=== PATIENT | male | born 1950 | race Caucasian/White ===

== ENCOUNTER 2021-04-28 09:56 | Outpatient (CLI) | payer MEDICARE ==
[2021-04-28 11:18] LABS: Hemoglobin 17.2 g/dL (13.5-17.5); Mean Corpuscular Hemoglobin 30.4 pg (27.0-33.0); Mean Corpuscular Volume 92.2 fl (81.2-95.1); Mean Platelet Volume 9.5 fl (7.4-10.4); Platelet Count 168 10x3/uL (150-450); RBC Distribution Width 13.9 % (11.5-14.5); Red Blood Cell (RBC) Count 5.65 10x6/uL (4.32-5.72); White Blood Cell (WBC) Count 4.3 10x3/uL (3.5-10.5)
[2021-04-28 12:23] LABS: Anion Gap 13 mmol/L (10-20); BUN (Urea Nitrogen) 21 mg/dL (8.4-25.7); Calc. Creatinine Clearance 0 mL/min (70-130); Calcium 9.3 mg/dL (7.8-10.44); Carbon Dioxide 25 mmol/L (23-31); Chloride 105 mmol/L (98-107); Glucose 100 mg/dL (80-115); Potassium 4.1 mmol/L (3.5-5.1); Sodium 139 mmol/L (136-145)
[2021-04-28 23:08] LABS: SARS-CoV-2 PCR by NAA Not Detected (NotDetected)
== END 2021-04-28 09:57 | disposition home or self-care (01) ==
LOC: CSHLAB 09:56
PROVIDERS: ATTEND Otolaryngology Otolaryngic Allergy
DX: Z01.818 Encounter for other preprocedural examination (principal); Z20.822 Contact with and (suspected) exposure to COVID-19; J34.2 Deviated nasal septum; J34.89 Other specified disorders of nose and nasal sinuses; J34.3 Hypertrophy of nasal turbinates; G47.33 Obstructive sleep apnea (adult) (pediatric)
CPT/HCPCS: 80048; 85027; 93005; 93010; U0003; U0005

== ENCOUNTER 2021-05-03 07:17 | Observation (INO) | payer MEDICARE ==
[2021-04-28 09:48] VITALS: BMI 30.2
[2021-05-03] MEDS ORDERED: Lidocaine 1% MPF 2 ML VIAL ONE (10:03)
[2021-05-03] MEDS ORDERED: Oxymetazoline HCl 0.05% ( 15 ML ) ONE (10:03)
[2021-05-03] MEDS ORDERED: Acetaminophen 325 MG TAB PO PRN (10:46)
[2021-05-03] MEDS ORDERED: Ondansetron ODT 4 MG TAB PO PRN (10:46)
[2021-05-03] MEDS ORDERED: Ondansetron PF 4 MG/2 ML Vial IVP PRN (10:46)
[2021-05-03] MEDS ORDERED: Acetaminophen/Codeine 30-300mg Tablet PO PRN (10:49)
[2021-05-03] MEDS ORDERED: Oxymetazoline HCl 0.05% ( 15 ML ) NASAL PRN (10:51)
[2021-05-03] MEDS ORDERED: Sodium Chloride 0.65% Nasal 44 ML BOT EA NARE PRN ×2 (10:52→11:45)
[2021-05-03] MEDS ORDERED: Ondansetron PF 4 MG/2 ML Vial ONE (10:53)
[2021-05-03] MEDS ORDERED: Fentanyl 250 MCG/5 ML VIAL ONE (10:53)
[2021-05-03] MEDS ORDERED: Lidocaine 2% PF 5 ML VIAL ONE (10:53)
[2021-05-03] MEDS ORDERED: PROPOFOL 20 ML ONE ×2 (10:53→10:57)
[2021-05-03] MEDS ORDERED: Midazolam HCl 2 mg/2 ml Vial ONE (10:53)
[2021-05-03] MEDS ORDERED: Rocuronium Bromide 10 MG/ML (10ML VIAL) ONE (10:53)
[2021-05-03] MEDS ORDERED: Dexamethasone 4 mg/ml Vial ONE (10:53)
[2021-05-03] MEDS ORDERED: SUGAMMADEX SODIUM 200 MG/2 ML VIAL ONE (10:56)
[2021-05-03] MEDS ORDERED: CEFAZOLIN 1 GM VIAL ONE (11:01)
[2021-05-03] MEDS ORDERED: Lidocaine 1% w/Epinephrine 1:100K 20 ML VIAL ONE (11:27)
[2021-05-03] MEDS ORDERED: Mupirocin 2% Ointment 22 GM Tube ONE (11:56)
[2021-05-03] MEDS ORDERED: Fentanyl 100 MCG/2 ML VIAL ONE (12:29)
[2021-05-03] MEDS ORDERED: AMOXicillin 500 MG CAP PO SCH (14:00)
[2021-05-03] MEDS: Acetaminophen/Codeine 30-300mg Tablet PO PRN ×2 (14:15→21:40)
[2021-05-03] MEDS ORDERED: AMOXicillin 250 MG CAP PO SCH (14:15)
[2021-05-03] MEDS ORDERED: cloNIDine 0.1 MG TAB PO SCH (17:00)
[2021-05-03] MEDS ORDERED: Losartan Potassium 50 MG TAB PO SCH ×2 (17:00→21:00)
[2021-05-03] MEDS ORDERED: Amlodipine 5 MG TAB PO SCH ×2 (17:00→21:00)
[2021-05-03] MEDS ORDERED: Ibuprofen 400 MG TAB PO PRN (17:59)
[2021-05-03] MEDS ORDERED: Rosuvastatin 10 MG TAB PO SCH (21:00)
[2021-05-03] MEDS ORDERED: Gabapentin 300 MG CAP PO SCH (21:00)
[2021-05-03] MEDS ORDERED: Primidone 50 MG TAB PO SCH (21:00)
[2021-05-03] MEDS: AMOXicillin 250 MG CAP PO SCH (21:44)
[2021-05-03] MEDS: cloNIDine 0.1 MG TAB PO SCH (21:44)
[2021-05-04] MEDS: Acetaminophen/Codeine 30-300mg Tablet PO PRN ×3 (02:31→11:07)
[2021-05-04] MEDS ORDERED: Levothyroxine Sodium 50 MCG TAB PO SCH (06:00)
[2021-05-04] MEDS: AMOXicillin 250 MG CAP PO SCH (06:41)
[2021-05-04 08:10] VITALS: BP 162/90; TEMP 98.3
[2021-05-04] MEDS: cloNIDine 0.1 MG TAB PO SCH (08:53)
[2021-05-06] MEDS ORDERED: Anastrozole 1 MG TAB PO SCH (09:00)
== END 2021-05-04 12:06 | disposition home or self-care (01) ==
LOC: CSHSDC 07:17 → CSHTELE 13:58
PROVIDERS: ADMIT Otolaryngology Otolaryngic Allergy; ATTEND Otolaryngology Otolaryngic Allergy
DX: J34.2 Deviated nasal septum (principal); J34.89 Other specified disorders of nose and nasal sinuses; J34.3 Hypertrophy of nasal turbinates; G47.33 Obstructive sleep apnea (adult) (pediatric); Z79.899 Other long term (current) drug therapy; I25.10 Atherosclerotic heart disease of native coronary artery without angina pectoris
CPT/HCPCS: 30140; 30520; 94640; 94760; G0378 ×2; J0690; J1100; J2001; J2250; J2405; J2704; J3010

== ENCOUNTER 2021-07-14 12:07 | Outpatient (CLI) | payer MEDICARE ==
[2021-07-14 13:35] LABS: Hemoglobin 16.5 g/dL (13.5-17.5); Mean Corpuscular HGB CONC 32.4 g/dL (32.0-36.0); Mean Corpuscular Hemoglobin 29.7 pg (27.0-33.0); Mean Corpuscular Volume 91.7 fl (81.2-95.1); Platelet Count 145 10x3/uL (150-450); RBC Distribution Width 14.4 % (11.5-14.5); Red Blood Cell (RBC) Count 5.55 10x6/uL (4.32-5.72); White Blood Cell (WBC) Count 4.3 10x3/uL (3.5-10.5)
[2021-07-14 14:01] LABS: Anion Gap 11 mmol/L (10-20); BUN (Urea Nitrogen) 25 mg/dL (8.4-25.7); Calc. Creatinine Clearance 0 mL/min (70-130); Calcium 9.8 mg/dL (7.8-10.44); Carbon Dioxide 27 mmol/L (23-31); Chloride 104 mmol/L (98-107); Glucose 111 mg/dL (80-115); Potassium 4.4 mmol/L (3.5-5.1); Sodium 138 mmol/L (136-145)
[2021-07-15 11:47] LABS: SARS-CoV-2 PCR by NAA Not Detected (NotDetected)
== END 2021-07-14 12:08 | disposition home or self-care (01) ==
LOC: CSHLAB 12:07
PROVIDERS: ATTEND Otolaryngology Otolaryngic Allergy
DX: Z01.812 Encounter for preprocedural laboratory examination (principal); Z20.822 Contact with and (suspected) exposure to COVID-19
CPT/HCPCS: 80048; 85027; U0003; U0005

== ENCOUNTER 2021-07-19 05:51 | Day surgery (SDC) | payer MEDICARE ==
[2021-07-14 10:13] VITALS: BMI 30.2
[2021-07-19] MEDS ORDERED: Lidocaine 1% MPF 2 ML VIAL ONE (06:20)
[2021-07-19] MEDS ORDERED: Propofol 1,000 MG/100 ML VIAL IV ONE (06:31)
[2021-07-19] MEDS ORDERED: Phenylephrine 40 MG/NS 250 ML 250 ML ONE (06:31)
[2021-07-19] MEDS ORDERED: Fentanyl 250 MCG/5 ML VIAL ONE (06:46)
[2021-07-19] MEDS ORDERED: PROPOFOL 20 ML ONE (06:46)
[2021-07-19] MEDS ORDERED: Rocuronium Bromide 10 MG/ML (10ML VIAL) ONE (06:46)
[2021-07-19] MEDS ORDERED: Midazolam HCl 2 mg/2 ml Vial ONE (06:46)
[2021-07-19] MEDS ORDERED: Lidocaine 1% PF 5 ML VIAL ONE (06:46)
[2021-07-19] MEDS ORDERED: Dexamethasone 20 MG/5 ML VIAL ONE (06:46)
[2021-07-19] MEDS ORDERED: Ondansetron PF 4 MG/2 ML Vial ONE (06:46)
[2021-07-19] MEDS ORDERED: ePHEDrine Sulfate 50 MG/10 ML VIAL ONE (06:47)
[2021-07-19] MEDS ORDERED: ceFAZolin 2 GM/Dextrose 50 ML IVPB ONE (07:17)
[2021-07-19] MEDS ORDERED: Lidocaine 1% w/Epinephrine 1:100K 20 ML VIAL ONE (07:35)
[2021-07-19] MEDS ORDERED: Glycopyrrolate 0.2 MG/ML 5 ML SYRINGE ONE (07:38)
[2021-07-19] MEDS ORDERED: EPINEPHrine 1 MG/ML AMP ONE (08:17)
== END 2021-07-19 12:05 | disposition home or self-care (01) ==
LOC: CSHSDC 05:51
PROVIDERS: ATTEND Otolaryngology Otolaryngic Allergy
DX: G47.33 Obstructive sleep apnea (adult) (pediatric) (principal); H90.A21 Sensorineural hearing loss, unilateral, right ear, with restricted hearing on the contralateral side; H65.02 Acute serous otitis media, left ear; Z79.899 Other long term (current) drug therapy; I25.10 Atherosclerotic heart disease of native coronary artery without angina pectoris
CPT/HCPCS: C1820; C1898; J0171; J0690; J1100; J2250; J2405; J2704; J3010

== ENCOUNTER 2023-03-30 10:03 | Outpatient (CLI) | payer MEDICARE ==
[2023-03-30] MEDS ORDERED: Iopamidol 300 61% 100 ML VIAL FS ONE (11:28)
== END 2023-03-30 10:04 | disposition home or self-care (01) ==
LOC: CSHCT 10:03
PROVIDERS: ATTEND Physician Assistant Medical
DX: K59.00 Constipation, unspecified (principal); R11.0 Nausea; C25.9 Malignant neoplasm of pancreas, unspecified; C78.6 Secondary malignant neoplasm of retroperitoneum and peritoneum; R59.0 Localized enlarged lymph nodes; K76.9 Liver disease, unspecified; D73.9 Disease of spleen, unspecified; R91.8 Other nonspecific abnormal finding of lung field; J94.8 Other specified pleural conditions
CPT/HCPCS: 74177; 82565; Q9967

== ENCOUNTER 2023-04-10 15:03 | Emergency (ER) | payer MEDICARE ==
[~2023-04-10 15:03] MED LIST: Iopamidol 370 76% 100 ML VIAL ONE
[2023-04-10] MEDS ORDERED: Metoclopramide HCl 10 MG (2 mL) VIAL ONE (15:40)
[2023-04-10] MEDS ORDERED: Morphine 4 MG/ML VIAL ONE (15:40)
[2023-04-10] MEDS ORDERED: diphenhydrAMINE 50 MG/ML VIAL ONE (15:40)
[2023-04-10 15:58] LABS: #Eosinphils 0.1 10x3/uL (0.0-0.5); #Monocytes 0.6 10x3/uL (0.0-1.1); #Neutrophils 3.9 10x3/uL (1.5-8.4); %Basophils 0.6 % (0.0-2.0); %Eosinophils 2.1 % (0.0-6.0); %Lymphocytes 13.2 % (18.0-47.0); %Monocytes 10.9 % (0.0-10.0); Hematocrit 46.1 % (38.8-50.0); Hemoglobin 15.7 g/dL (13.5-17.5); Mean Corpuscular HGB CONC 34.1 g/dL (32.0-36.0); Mean Corpuscular Volume 93.9 fl (81.2-95.1); Mean Platelet Volume 9.3 fl (7.4-10.4); Platelet Count 177 10x3/uL (150-450); RBC Distribution Width 13.9 % (11.5-14.5); Red Blood Cell (RBC) Count 4.91 10x6/uL (4.32-5.72); White Blood Cell (WBC) Count 5.3 10x3/uL (3.5-10.5)
[2023-04-10 16:16] LABS: ALT (SGPT) 14 U/L (8-55); AST (SGOT) 20 U/L (5-34); Albumin 4.4 g/dL (3.4-4.8); Alkaline Phosphatase 59 U/L (40-110); Anion Gap 17 mmol/L (10-20); BUN (Urea Nitrogen) 10 mg/dL (8.4-25.7); Bilirubin, Total 1.3 mg/dL (0.2-1.2); Calc. Creatinine Clearance 0 mL/min (70-130); Calcium 9.9 mg/dL (7.8-10.44); Carbon Dioxide 22 mmol/L (23-31); Chloride 99 mmol/L (98-107); Estimated GFR 87; Globulin 2.5 g/dL (2.4-3.5); Glucose 109 mg/dL (83-110); Lipase 4 U/L (8-78); Magnesium 1.6 mg/dL (1.6-2.6); Potassium 4.3 mmol/L (3.5-5.1); Protein, Total 6.9 g/dL (5.8-8.1); Sodium 134 mmol/L (136-145)
[2023-04-10 16:22] LABS: Troponin I 0.025 ng/mL (< 0.028)
[2023-04-10] MEDS ORDERED: Ondansetron PF 4 MG/2 ML Vial ONE (17:12)
[2023-04-10 18:16] LABS: Bilirubin Neg (Negative); Blood, Urine Negative (Negative); Clarity Clear (Clear); Glucose, Urine (Dipstick) Normal (Negative); Ketone, Urine 15 mg/dL (Negative); Leukocyte Negative (Negative); Nitrite Negative (Negative); Protein, Urine (Dipstick) 15 mg/dl (Neg-Trace); Specific Gravity, Urine 1.015 (1.005-1.030); Urobilinogen Normal mg/dL (Less than 2)
[2023-04-10 18:27] LABS: Bacteria/HPF Rare-Few HPF (None Seen); CAUTI Indications for Culture Pelvic or flank pain; Mucous/LPF 2+ LPF (<2+); RBC/HPF 0-3 HPF (0-3); Squamous Epithelial 0-3 HPF (0-3); WBC/HPF 0-3 HPF (0-3)
[2023-04-10 18:29] LABS: Urine Culture Reflex No No
[2023-04-10] MEDS ORDERED: Diazepam 10 MG/2 ML SYRINGE ONE (19:16)
[2023-04-10] MEDS ORDERED: Promethazine HCl 12.5 MG in Sodium Chloride 0.9% 50 ML IVPB SCH (21:30)
== END 2023-04-10 21:58 | disposition short-term general hospital (02) ==
LOC: CSHERS 15:03
DX: C25.9 Malignant neoplasm of pancreas, unspecified (principal); J91.8 Pleural effusion in other conditions classified elsewhere; I10 Essential (primary) hypertension
CPT/HCPCS: 36415; 71275; 74177; 80053; 81001; 83605; 83690; 83735; 83880; 84484; 85025; 87040; 96374; 96375; J1200; J2270; J2405; J2550; J2765; J3360; Q9967